=== PATIENT | female | born 1940 | race Caucasian/White ===

== ENCOUNTER 2018-10-20 12:35 | Emergency (ER) | payer MEDICARE ==
[~2018-10-20] VITALS: Ht 149.9 cm; Wt 60.5 kg
[2018-10-20 12:36] VITALS: BP 179/87
[2018-10-20] MEDS ORDERED: OMEP10CA4 PO (12:48)
[2018-10-20] MEDS ORDERED: FLUO20CA19 PO (12:48)
[2018-10-20] MEDS ORDERED: ZOLP-413 PO (12:50)
[2018-10-20] MEDS ORDERED: ATOR-2 PO (12:50)
[2018-10-20] MEDS ORDERED: CLON0.5T11 PO (12:50)
--- NOTE | 2018-10-20 15:43 | NUR ---
Patient/Caregiver given discharge instructions and they have confirmed that they understand the instructions. Volar splint applied by EMT, CMS intact. Patient ambulatory with steady gait.
== END 2018-10-20 15:44 | disposition home or self-care (01) ==
LOC: ED 15:20
DX: S52.615A Nondisplaced fracture of left ulna styloid process, initial encounter for closed fracture (principal); S52.502A Unspecified fracture of the lower end of left radius, initial encounter for closed fracture; Z90.710 Acquired absence of both cervix and uterus; W19.XXXA Unspecified fall, initial encounter; Y93.89 Activity, other specified; Y92.099 Unspecified place in other non-institutional residence as the place of occurrence of the external cause; Y99.8 Other external cause status
CPT/HCPCS: 29125; 99283

== ENCOUNTER 2019-08-15 12:59 | Emergency (ER) | payer MEDICARE ==
[~2019-08-15] VITALS: Ht 149.9 cm; Wt 60.7 kg
[~2019-08-15 12:59] MED LIST: ATOR-2 PO; CLON0.5T11 PO; FLUO20CA19 PO; OMEP10CA5 PO; ZOLP-413 PO
[2019-08-15 13:28] VITALS: BP 143/88
[2019-08-15] MEDS ORDERED: HYDROcodone/APAP 5/325 TABLET PO PRN (14:30)
--- NOTE | 2019-08-15 15:04 | NUR ---
ASSUMED CARE OF PATIENT. REPORT GIVEN FROM HARJEET HUANG
--- NOTE | 2019-08-15 15:33 | NUR ---
RV SERVICE TECHNICIAN: Patient/Caregiver given discharge instructions and they have confirmed that they understand the instructions. Patient ambulatory with steady gait. WHEELCHAIR TO D/C FOR COMFORT
== END 2019-08-15 15:35 | disposition home or self-care (01) ==
LOC: ED 15:20
DX: S22.41XA Multiple fractures of ribs, right side, initial encounter for closed fracture (principal); S09.92XA Unspecified injury of nose, initial encounter; W01.0XXA Fall on same level from slipping, tripping and stumbling without subsequent striking against object, initial encounter; Y93.89 Activity, other specified; Y92.89 Other specified places as the place of occurrence of the external cause; Y99.8 Other external cause status
CPT/HCPCS: 99283